=== PATIENT | male | born 1990 | race Caucasian/White ===

== ENCOUNTER 2023-12-30 13:49 | Emergency (ER) | payer OTHER, SELFPAY ==
[2023-12-30 13:58] VITALS: BP 151/98
--- NOTE | 2023-12-30 15:00 | ED.GENMED ---
History of Present Illness
General
Chief Complaint: Musculo-Skeletal Complaint
Time Seen by Provider: 12/30/23 14:09
Travel History
Have you had any contact with someone who has COVID-19?: No
Do you have any symptoms of coronavirus? Fever > 100 degrees, chills, cough, shortness of breath, sore throat, loss of taste or smell, muscle aches, or headache?: No
History of Present Illness
History of Present Illness:
33-year-old male presents the emergency department for evaluation of left elbow pain. States he was lifting a heavy tire at work when he felt a pop in the left lateral elbow. He is able to move the elbow with minimal pain. Denies any distal
paresthesias
Past History
Past History
ED Past Medical History: None
ED Past Surgical History: None
Social History
Tobacco: Non-smoker
Alcohol: None
Drug: None
Personal: Single
Living: with family
Employment: Student
Family History
Family History: CAD and Other (Hyperlipidemia)
Review of Systems
Review of Systems
Allergies reviewed?: Yes
All Other Systems: ROS reviewed and negative except as documented in HPI and ROS
Phy Exam
Physical Exam
Physical Exam:
GEN: Well appearing, NAD, WDWN
HEENT: Oral mucosa moist, no scleral icterus
Cardiac: Regular rate
Lung: No respiratory distress, no tachypnea
MSK: No gross deformity or injuries. No focal tenderness to the elbow. Left elbow range of motion and left wrist range of motion is normal, no pain with resisted extension at the middle finger or wrist
Skin: Good color, no pallor or jaundice, no rashes
Neuro: AO x3, moves all extremities freely
Psych: Calm, cooperative
Course
Orders/Labs/Results
Orders:
Orders
12/30/23 14:00
Elbow, 3 view, Left [CR Elbow - Left Min 3 Views ] Urgent
Comment:
Reason For Exam: injury
Vital Signs
Initial and Last Documented VS:
Initial Vital Signs
Temp Pulse Resp BP Pulse Ox
98.7 F 65 18 151/98 100
12/30/23 13:58 12/30/23 13:58 12/30/23 13:58 12/30/23 13:58 12/30/23 13:58
Last Documented Vital Signs
Temp Pulse Resp BP Pulse Ox
98.7 F 65 18 151/98 100
12/30/23 13:58 12/30/23 13:58 12/30/23 13:58 12/30/23 13:58 12/30/23 13:58
MDM/Problems Addressed
MDM/Problems Addressed:
X-rays left elbow independently interpreted by me show no acute osseous abnormalities. Likely an acute forearm strain, discussed supportive care
*Critical Care Note
Total Time (30-74mins, 75-104mins- exclusive of procedures): Not Applicable
ED Attending Note
-
Portions of this chart may have been created with voice recognition software.� Occasional wrong word or��sound alike� substitutions may have occurred due to the inherent limitations of voice recognition software.
Discharge Plan
Departure
Patient Disposition: Home (Routine Discharge)
Date of Disposition: 12/30/23
Time of Disposition: 15:01
Patient with high blood pressure during this ER visit?: No
Discharge Problem:
Muscle strain of left forearm
Instructions: Muscle Strain (DC)
Prescriptions:
No Action
multivitamin [[id number]] 1 EACH tablet
1 tab PO DAILY
Pre-Workout Suppliment
1 dose PO PRN PRN (Reason: when working out)
Vegetable Replacement Powder
1 dose PO DAILY
Interventions
Interventions:
*Risk Screen - Suicide Last Done: 12/30/23 14:00
*General Assessment Last Done: 12/30/23 14:00
*Neglect/Abuse Screening Last Done: 12/30/23 14:00
ED-Musculoskeletal Assessment Last Done: 12/30/23 14:21
== END 2023-12-30 15:54 | disposition home or self-care (01) ==
LOC: EMR 13:49
PROVIDERS: EMERGENCY PHYSICIAN Emergency Medicine; FAMILY PHYSICIAN Family Medicine Adult Medicine
DX: S56.912A Strain of unspecified muscles, fascia and tendons at forearm level, left arm, initial encounter (principal); X50.0XXA Overexertion from strenuous movement or load, initial encounter; Y93.89 Activity, other specified; Y92.89 Other specified places as the place of occurrence of the external cause; Y99.0 Civilian activity done for income or pay
CPT/HCPCS: 99283; 73080

== ENCOUNTER 2025-03-21 20:07 | Emergency (ER) | payer OTHER, SELFPAY ==
[2025-03-21 20:24] VITALS: BP 158/103
[2025-03-21 20:42] LABS: % Basophils 0.5 % (0-2); % Eosinophils 3.5 % (0-6); % Immature Granulocytes 0.4 % (0-0.5); % Monocytes 9.5 % (1.7-9.3); % Neutrophils 54.1 % (42.2-75.2); Absolute Eosinophils 0.3 10^3/uL (0-0.7); Absolute Lymphocytes 2.5 10^3/uL (1.2-3.4); Absolute Monocytes 0.7 10^3/uL (0.1-0.6); Absolute Neutrophils 4.2 10^3/uL (1.4-6.5); Hematocrit 42.3 % (39.0-52.0); Hemoglobin 14.9 g/dL (13.0-18.0); Mean Corp Hgb Conc. 35.2 g/dL (33.0-37.0); Mean Corpuscular Hgb 30.9 pg (27.0-31.0); Mean Corpuscular Volume 87.8 fL (80.0-94.0); Mean Platelet Volume 9.4 fL (7.4-10.4); Nucleated Red Blood Cells % 0 % (-); Platelet Count 217 10^3/uL (130-400); Red Blood Cell Count 4.82 10^6/uL (4.70-6.10); Red Cell Dist. Width 11.8 % (11.5-14.5); White Blood Cell Count 7.8 10^3/uL (4.8-10.8)
[2025-03-21 21:01] LABS: ALT (SGPT) 35 U/L (0-50); AST (SGOT) 34 U/L (17-59); Albumin 4.9 g/dl (3.5-5.0); Alkaline Phosphatase 60 U/L (38-126); Blood Urea Nitrogen 27 mg/dl (9-20); Calcium 9.6 mg/dl (8.4-10.2); Carbon Dioxide 27 mmol/L (22-30); Chloride 103 mmol/L (98-107); Glucose 125 mg/dl (70-99); Sodium 141 mmol/L (135-145); Total Bilirubin 1.1 mg/dl (0.2-1.3); Total Protein 7.6 g/dl (6.3-8.2); eGFR > 60.00
[2025-03-21 21:06] LABS: Troponin I < 0.012 ng/ml
[2025-03-22 00:39] VITALS: BMI 28.3
[2025-03-22 00:40] VITALS: BP 142/92
--- NOTE | 2025-03-22 01:35 | ED.GENMED ---
History of Present Illness
General
Chief Complaint: Chest Pain
Source: patient
Exam Limitations: none
Time Seen by Provider: 03/22/25 00:51
Nursing documentation reviewed up to this point in time: agreed with
History of Present Illness
History of Present Illness:
34-year-old male presents to the emergency department after having an episode of chest pain approximately 15 hours ago. He states that he sneezed and then had this chest pain. At the time of my exam, his chest pain had resolved. He states that he
is unable to reproduce the pain at this time. Denies shortness of breath. Has been followed by Dr. Castellon, bottom stop attacher in [place] for hyperlipidemia and high lipoprotein. He denies any previous cardiac events. Denies fever, chills, nausea or
vomiting. 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
Past History
Past History
ED Past Medical History: None
ED Past Surgical History: None
Social History
Tobacco: Non-smoker
Alcohol: None
Drug: None
Personal: Single
Living: with family
Employment: Student
Family History
Family History: CAD and Other (Hyperlipidemia)
Review of Systems
Review of Systems
Allergies reviewed?: Yes
All Other Systems: ROS reviewed and negative except as documented in HPI and ROS
Constitutional: Reports no symptoms
EENT: Reports no symptoms
Respiratory: Reports no symptoms
Cardiac: Reports chest pain
ABD/GI: Reports no symptoms
: Reports no symptoms
Musculoskeletal: Reports no symptoms
Skin: Reports no symptoms
Neurological: Reports no symptoms
Endocrine: Reports no symptoms
Hematologic/Lymphatic: Reports no symptoms
Psychiatric: Reports no symptoms
Scores
Heart Score for Chest Pain Patients
STEMI patient?: No
History: Slightly or Non-Suspicious
ECG: Normal
Age: </= 45 years
Risk Factors: 1 or 2 Risk Factors
Troponin: </= Normal Limit
Heart Score for Chest Pain Patients: 1
Heart Score Risk: 2.5% MACE over next 6 weeks
Course
Orders/Labs/Results
Orders:
Orders
03/21/25 20:08
Electrocardiogram (*1) Urgent
Reason for Study: Chest Pain
EKG- Treatment ONCE
03/21/25 20:28
CR Chest - 2 Views Urgent
Comment:
Reason For Exam: chest pain
03/21/25 20:32
Complete Blood Count/With Diff Urgent
Comprehensive Metabolic Panel Urgent
Troponin I Urgent
03/22/25 01:34
0.9% Sodium Chloride 1000 ml [Nss] 1,000 ml IV BOLUS
Abnormal Lab Results
03/21/25
20:32
Absolute Monos (auto) 0.7 H 10^3/uL
(0.1-0.6)
Monocytes % 9.5 H %
(1.7-9.3)
BUN 27 H mg/dl
(9-20)
Glucose 125 H mg/dl
(70-99)
03/21/25 20:32
03/21/25 20:32
Vital Signs
Initial and Last Documented VS:
Initial Vital Signs
Temp Pulse Resp BP
98.5 F 63 16 158/103
03/21/25 20:24 03/21/25 20:24 03/21/25 20:24 03/21/25 20:24
Last Documented Vital Signs
Temp Pulse Resp BP Pulse Ox
98.5 F 58 18 142/92 100
03/21/25 20:24 03/22/25 00:40 03/22/25 00:40 03/22/25 00:40 03/22/25 00:40
*Radiology
Radiology exam reviewed: all reviewed NAD by ED Provider
*Pulse Oximetry
Patient hypoxic: no
*EKG
Interpretation: normal
Rate: bradycardiac
Rhythm: sinus
[place]: normal axis
QRS Pattern: normal QRS
Ischemia: no ischemia
*Wireless Sales Representative Interpretation
Rate: Wireless Sales Representative- N/A (Patient refused senior technical editor)
*Critical Care Note
Total Time (30-74mins, 75-104mins- exclusive of procedures): Not Applicable
ED Attending Note
-
Portions of this chart may have been created with voice recognition software.� Occasional wrong word or��sound alike� substitutions may have occurred due to the inherent limitations of voice recognition software.
Discharge Plan
Departure
Patient Disposition: Home (Routine Discharge)
Date of Disposition: 03/22/25
Time of Disposition: 01:45
Patient with high blood pressure during this ER visit?: Yes
Condition: Good
Discharge Problem:
Chest pain, Acute dehydration
Instructions: Chest Pain NON-[employer] Rep[employer]r [employer] Follow Up, BLOOD PRESSURE
Prescriptions:
No Action
multivitamin [[id number]] 1 EACH tablet
1 tab PO DAILY
Pre-Workout Suppliment
1 dose PO PRN PRN (Reason: when working out)
Vegetable Replacement Powder
1 dose PO DAILY
Referrals:
[facility] [Provider Group]
Maximus Castellon MD [Non-Admitting Privileges] -
UNKNOWN,NO INTERVIEW [Family Provider] -
Interventions
Interventions:
*Risk Screen - Suicide Last Done: 03/21/25 20:24
*General Assessment Last Done: 03/21/25 20:24
*Neglect/Abuse Screening Last Done: 03/21/25 20:24
*ED- Fall Risk Assessment Last Done: 03/22/25 00:38
*ED COVID-19 Vaccine History Last Done: 03/22/25 00:38
ED- Cardiac Assessment Last Done: 03/22/25 00:41
Discharge Date and Time
Print Language: MAURITANIAN
== END 2025-03-22 01:53 | disposition home or self-care (01) ==
LOC: EMR 20:07
PROVIDERS: Emergency Medicine; EMERGENCY PHYSICIAN Student in an Organized Health Care Education/Training Program
DX: R07.89 Other chest pain (principal); E86.0 Dehydration; R03.0 Elevated blood-pressure reading, without diagnosis of hypertension; E78.5 Hyperlipidemia, unspecified
CPT/HCPCS: 99283; 71046; 80053; 84484; 85025; 93005